=== PATIENT | male | born 1965 | race Caucasian/White ===

== ENCOUNTER 2018-08-29 19:47 | Observation (INO) ==
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
--- NOTE | 2018-08-29 20:55 | XR ---
EXAM DATE: 08/29/2018 8:52 PM EST AGE/SEX: 53 years / Male INDICATIONS: Shortness of breath with chest pressure. Patient is here for psych eval. CLINICAL DATA: This is the patient's initial encounter. Patient reports that signs and symptoms have been present for 1 day and indicates a pain score of 3/10. MEDICAL/SURGICAL HISTORY: Hepatitis C. Anxiety, Depression. Cholecystectomy. Hernia repair. COMPARISON: No prior exams available for comparison. FINDINGS: A single AP view of the chest demonstrates the lungs to be symmetrically aerated without evidence of mass, infiltrate or effusion. The cardiomediastinal contours are unremarkable. Osseous structures a re intact. CONCLUSION: No acute cardiopulmonary disease. Electronically signed by: Jhony Bales MD Board Certified Radiologist 08/29/2018 8:53 PM EST
[2018-08-29 21:03] LABS: Baso # (Auto) 0.1 th/mm3 (0.0-0.2); Baso % (Auto) 0.9 % (0.0-2.0); Eos % (Auto) 0.3 % (0.0-4.0); Hematocrit 40.5 % (39.0-51.0); Hemoglobin 14.3 gm/dL (13.0-17.0); Lymph # (Auto) 1.6 th/mm3 (1.0-4.8); Lymph % (Auto) 21.2 % (9.0-44.0); Mean Corpuscular HGB Conc 35.2 % (32.0-36.0); Mean Corpuscular Hemoglobin 32.7 pg (27.0-34.0); Mean Corpuscular Volume 92.8 fL (80.0-100.0); Mean Platelet Volume 7.3 fL (7.0-11.0); Mono # (Auto) 0.6 th/mm3 (0.0-0.9); Mono % (Auto) 8.1 % (0.0-8.0); Neut # (Auto) 5.1 th/mm3 (1.8-7.7); Neut % (Auto) 69.5 % (16.0-70.0); Platelet Count 275 th/mm3 (150-450); Red Blood Count 4.36 mil/mm3 (4.50-5.90); Red Cell Distribution Width 13.3 % (11.6-17.2); White Blood Count 7.3 th/mm3 (4.0-11.0)
[2018-08-29 21:15] LABS: Anion Gap 5 meq/L (5-15); Aspartate Aminotransferase 31 U/L (15-37); Blood Urea Nitrogen 9 mg/dL (7-18); Calcium 8.8 mg/dL (8.5-10.1); Carbon Dioxide 30.5 meq/L (21.0-32.0); Chloride 105 meq/L (98-107); Glomerular Filtration Rate 84 mL/min (>89); Glucose,Random 86 mg/dL (74-106); Magnesium 2.3 mg/dL (1.5-2.5); Potassium 3.8 meq/L (3.5-5.1); Sodium 140 meq/L (136-145)
[2018-08-29 21:17] LABS: Alanine Aminotransferase 50 U/L (12-78)
[2018-08-29 21:27] LABS: Alkaline Phosphatase 67 U/L (45-117); Total Protein 8.1 g/dL (6.4-8.2)
[2018-08-29 22:33] LABS: Amphetamine Screen,Urine Neg (Neg); Barbiturate Screen,Urine Neg (Neg); Cannabinoid Screen,Urine Neg (Neg); Cocaine Screen,Urine Neg (Neg); Opiate Screen,Urine Neg (Neg)
[2018-08-29] MEDS ORDERED: Acetaminophen 325 MG Tablet PO PRN (23:07)
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
[2018-08-30] MEDS: Sod Chloride 0.9% Inj 1,000 ML IV.CONT SCH ×3 (00:17→11:39)
[2018-08-30 02:38] LABS: Creatine Kinase 58 U/L (39-308)
[2018-08-30 08:44] VITALS: RESP 16
[2018-08-30 13:01] LABS: Creatine Kinase 49 U/L (39-308)
--- NOTE | 2018-08-30 13:36 | P.PNIM ---
Subjective Interval history: 53-year-old gentleman admitted with anxiety and chest pain. Patient seen and examined, denies any further chest pain no palpitations no dizziness, cardiac enzymes are negative so far, he is still having some suicidal ideation, awaiting Physical Exam Vital signs: psychiatry evaluationLast Vital Signs Temp 98.7 F 08/30/18 12:36 Pulse 65 08/30/18 12:36 Resp 16 08/30/18 12:36 BP 118/67 08/30/18 12:36 Pulse Ox 97 08/30/18 12:36 Intake & Output 08/28/18 08/29/18 08/30/18 08/31/18 06:59 06:59 06:59 06:59 Weight 77.111 kg Pleasant awake alert oriented no acute distress, flat affect Heart S1-S2 regular Lungs clear bilateral no wheeze no rhonchi Abdomen soft nondistended positive bowel sounds Extremities no clubbing cyanosis no edema Results Labs CBC & Chem 7: 08/29/18 20:29 08/29/18 20:29 Imaging Imaging: Impressions Chest X-Ray 08/29/18 20:20 CONCLUSION: No acute cardiopulmonary disease. Assessment and Plan Plan ATYPICAL CP -no evidence of acute ischemia, negative, clinically stable for outpatient follow-up, suspect anxiety related chest pain SUICIDAL IDEATIONcontinue sitter, await psychiatry evaluation DEPRESSIONcontinue home Prozac TOBACCO ABUSE nicotine addictionNicoDerm topical, cessation counseling CHRONIC HEPATITIS C outpt followup labs stable dvt prophylaxis - oob, dispo - medically clear for discharge to home or inpatient psych pending consult. Progress Note: Quality VTE Deep Vein Thrombosis/Pulmonary Embolism Present on Admission: No
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
[2018-08-30 16:22] VITALS: BP 133/83; PULSE 89; TEMP 97.8; O2SAT 99
--- NOTE | 2018-08-31 01:37 | ECG ---
Date Performed: 08/29/2018 Time Performed: 20:26:52 PTAGE: 53 years EKG: Sinus rhythm NORMAL ECG NO PREVIOUS TRACING DOCTOR: Antonio Tijerina Interpretating Date/Time 08/31/2018 01:36:09
--- NOTE | 2018-08-31 01:48 | ECG ---
Date Performed: 08/30/2018 Time Performed: 03:55:59 PTAGE: 53 years EKG: Sinus rhythm NORMAL ECG Since the PREVIOUS TRACING , no significant change noted DOCTOR: Antonio Tijerina Interpretating Date/Time 08/31/2018 01:47:45
== END 2018-08-30 16:54 ==
LOC: NEPD 19:47 → NEDA 19:47 → NEPGCP 08-30 01:02
PROVIDERS: ADMIT Internal Medicine; ATTEND Internal Medicine
CPT/HCPCS: 71010; 71045; 80053; 80307; 82550; 83735; 84443; 84484; 85025; 93005; 96361; 96374; 99285; G0378; J2405; J7030

== ENCOUNTER 2018-08-30 16:13 | Inpatient (IN) ==
[2018-08-30] MEDS ORDERED: Acetaminophen 325 MG Tablet PO PRN (18:19)
[2018-08-30] MEDS ORDERED: LORazepam 1 MG Tablet PO PRN (18:19)
[2018-08-30] MEDS ORDERED: Aluminum/Magnesium/Simethacone Susp 30 ML UDC PO PRN (18:19)
[2018-08-30] MEDS ORDERED: traZODone 50 MG Tablet PO PRN (18:19)
[2018-08-30] MEDS ORDERED: REMOVE OLD NICOTINE T-DERMAL ONE (21:00)
[2018-08-31 10:30] LABS: Anion Gap 7 meq/L (5-15); Blood Urea Nitrogen 11 mg/dL (7-18); Calcium 8.8 mg/dL (8.5-10.1); Chloride 103 meq/L (98-107); Glomerular Filtration Rate Greater Than 89 mL/min (>89); Glucose,Random 98 mg/dL (74-106); Potassium 3.7 meq/L (3.5-5.1); Sodium 141 meq/L (136-145)
[2018-08-31 10:32] LABS: Cholesterol 160 mg/dL (120-200); Triglycerides 123 mg/dL (42-150)
[2018-08-31 10:35] LABS: Chol/HDL Ratio 4.26 Ratio; HDL Cholesterol 37.5 mg/dL (40.0-60.0); LDL Cholesterol,Calculated 98 mg/dL (0-99)
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
[2018-08-31] MEDS: FLUoxetine 20 MG Capsule PO SCH (14:53)
[2018-08-31 16:34] LABS: Hemoglobin A1c 5.4 % (4.3-6.0)
[2018-09-01 05:53] VITALS: O2SAT 98
[2018-09-01] MEDS: FLUoxetine 20 MG Capsule PO SCH (10:45)
--- NOTE | 2018-09-01 11:35 | P.PNPSY ---
Subjective Chief Complaint: Depression with psychotic features Remarks: September 01, 2018 Subjective: Patient continues to give a rather vague and inconsistent history. Is now complaining of several panic attacks and requesting repeated doses of Ativan. Explained to him today that this is not an effective approach to treatment that he would not be receiving further benzodiazepines. Today he has requested treatment for an acts "acute panic attack". Patient will be started on Atarax 50 mg every 6 as needed panic. Patient continues to complain that he is depressed and suicidal. Mental Status Examination Appearance: Appropriate Consciousness: Alert Orientation: x4 Motor Activity: Normal gait Speech: Unremarkable Language: Adequate Fund of Knowledge: Adequate Attention and Concentration: Adequate Memory: Unremarkable Mood: Sad, Anxious (Complains of panic, but does not seem outwardly anxious. Patient sleeping, requiring some effort to awaken) Affect: Anxious Thought Process & Associations: Intact Thought Content: Appropriate Hallucination Type: Auditory (Reports to nursing, but minimized to MD) Delusion Type: None Suicidal Ideation: Yes Suicidal Plan: Yes Insight: Poor Judgment: Poor Assessment and Plan - Plan Plan: Estimated LOS: [5] days Much of the patient's history needs be validated. There does seem to be a degree of manipulative behavior. He shows no extraordinary interest in improving he was not guilty of the charges that led to his 6 months of incarceration. Patient will be started on Prozac 20 mg twice daily as reported. Patient will not be given benzodiazepine medications. He reports being on Klonopin and Ativan. The patient does have an admitted history of substance abuse including methamphetamine. He claims to have contracted hepatitis C from using infected straws when he was regularly snorting cocaine. He denies IV drug use in our interview, but given a history of IV drug use to others. Examination of the public record regarding his incarceration would be helpful. Patient continues showing signs of possible malingering. Patient has not been witnessed having anxiety or panic and likely is medication seeking. Benzodiazepines discontinued and patient will be offered Atarax 50 mg every 6 as needed anxiety. Justification for Continued Inpatient Stay: September 01, 2018 If patient's description of his current condition is believable there is danger the been a lower level of care he might do harm to himself.
[2018-09-02 05:33] VITALS: BP 124/75; PULSE 61; RESP 21; TEMP 97.3
[2018-09-02] MEDS: FLUoxetine 20 MG Capsule PO SCH (08:27)
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
== END 2018-09-02 14:20 | disposition home or self-care (01) | DRG 881 ==
LOC: H260 17:02
PROVIDERS: ADMIT Psychiatry & Neurology Child & Adolescent Psychiatry; ATTEND Psychiatry & Neurology Child & Adolescent Psychiatry
CPT/HCPCS: J2060